=== PATIENT | male | born 1975 | race Caucasian/White ===

== ENCOUNTER 2018-05-11 06:28 | Emergency (ER) | payer OTHER ==
[~2018-05-11] VITALS: Ht 188 cm; Wt 90.7 kg
--- NOTE | 2018-05-11 06:51 | NUR ---
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 PER Pt STATEMENT NEVER HAD THIS KIND OF EXPERIENCE BEFORE. Pt DENIES DYSURIA; DENIES ANY CP OR SOB. -N/V/D. LBM 1HR AGO, NORMAL PER Pt STATMENT. Pt IS IN BED, BEING SEEN BY MD AT BEDSIDE. Pt IS A/OX4, VERBAL, ABLE TO MAKE NEEDS KNOWN. WILL CONTINUE TO MONITOR Pt.
[2018-05-11] MEDS ORDERED: HYDROCODONE/APAP 5/325MG 1 EACH TABLET PO ONE (07:00)
[2018-05-11] MEDS ORDERED: HYDROCODONE/APAP 5/325MG 1 EACH TABLET ONE (07:08)
--- NOTE | 2018-05-11 07:15 | NUR ---
ALL ORDERED MEDS GIVEN
[2018-05-11 07:17] VITALS: BP 136/80
[2018-05-11 07:17] LABS: BASOPHILS % (AUTO) 0.4 % (0.0-2.0); EOSINOPHILS % (AUTO) 3.7 % (0.0-6.0); HEMATOCRIT 41 % (39-51); HEMOGLOBIN 14.1 g/dL (13.5-17.5); LYMPHOCYTES # (AUTO) 2.1 /CMM (0.8-4.8); LYMPHOCYTES % (AUTO) 35.5 % (20.0-44.0); MEAN CORPUSCULAR HGB CONC 34 g/dl (31.0-36.0); MEAN CORPUSCULAR VOLUME 94 fL (80-96); MONOCYTES # (AUTO) 0.6 /CMM (0.1-1.30); MONOCYTES % (AUTO) 10.1 % (2.0-12.0); NEUTROPHILS % (AUTO) 50.3 % (43.0-81.0); PLATELET COUNT (AUTO) 167 /CMM (150-450); RED BLOOD CELL COUNT(AUTO) 4.37 MIL/uL (4.5-6.0); WHITE BLOOD COUNT (AUTO) 5.9 K/uL (4.3-11.0)
--- NOTE | 2018-05-11 07:22 | NUR ---
REPORT TAKEN FROM YOMI FRANCE FOR CONTINUED CARE, PT STABLE , COMFORTABLE, STILL ABD PAIN 07/21
--- NOTE | 2018-05-11 07:23 | NUR ---
REPORT GIVEN TO SONALI CHAVARRIA FOR Pt's ADDISON. Pt RESTING COMFORTABLY IN BED. NO S/S OF ACUTE DISTRESS OR SOB NOTED.
[2018-05-11 07:31] LABS: CALCIUM, SERUM 8.6 mg/dL (8.5-10.1); CREATININE 0.9 mg/dL (0.6-1.3); POTASSIUM 3.9 mmol/L (3.5-5.1)
[2018-05-11 07:38] LABS: BILIRUBIN,DIRECT 0.2 mg/dL (0.0-0.2); BILIRUBIN,TOTAL 0.9 mg/dL (0.2-1.0); TOTAL PROTEIN, SERUM 6.9 g/dL (6.4-8.2)
--- NOTE | 2018-05-11 08:15 | NUR ---
Patient discharged to home in stable condition. Written and verbal after care instructions given. Patient verbalizes understanding of instruction.
== END 2018-05-11 08:11 | disposition home or self-care (01) ==
LOC: ER 06:31
DX: R10.13 Epigastric pain (principal); R74.0 Nonspecific elevation of levels of transaminase and lactic acid dehydrogenase [LDH]
CPT/HCPCS: 36415; 80048; 80076; 83690; 85025; 93005; 99284; A4606; Z7610